=== PATIENT | female | born 2000 | race Two or more races ===

== ENCOUNTER 2022-03-06 17:58 | Inpatient (IN) | payer MEDICAID, OTHER ==
[~2022-03-06] VITALS: Ht 157.5 cm; Wt 54.4 kg
--- NOTE | 2022-03-06 18:15 | NUR ---
BIB [facility] ,SYNCOPAL EPISODE AT A MALL. PATIENT PLACED IN ROOM 6. NOW AWAKE, ALERT, ORIENTED X4. VITALS CHECKED. PATIENT CAME WITH IV CANNULA ON RIGHT HAND G20. WITH ONGOING IV BOLUS OF 0.9NS 500CC
--- NOTE | 2022-03-06 18:25 | NUR ---
SEEN BY BECCA ESPINOZA AT BEDSIDE.
--- NOTE | 2022-03-06 18:27 | NUR ---
EKG DONE AT BEDSIDE.
--- NOTE | 2022-03-06 18:29 | NUR ---
BLOOD DRAWN AND SENT TO LAB
[2022-03-06] MEDS ORDERED: IV NS 0.9% 1,000 ML BAG IV ONE (18:30)
--- NOTE | 2022-03-06 18:30 | NUR ---
0.9NS 1L BOLUS STARTED. END TIME 1900H
[2022-03-06 18:36] LABS: BASOPHILS % (AUTO) 0.8 % (0.0-2.0); EOSINOPHILS % (AUTO) 1.2 % (0.0-6.0); HEMATOCRIT 26 % (33-45); HEMOGLOBIN 7.9 g/dL (11.5-14.8); LYMPHOCYTES # (AUTO) 1.4 K/uL (0.8-4.8); LYMPHOCYTES % (AUTO) 25.7 % (20.0-44.0); MEAN CORPUSCULAR HGB CONC 30 g/dl (31.0-36.0); MEAN CORPUSCULAR VOLUME 67 fL (82-100); MONOCYTES # (AUTO) 0.3 K/uL (0.1-1.30); MONOCYTES % (AUTO) 5.3 % (2.0-12.0); NEUTROPHILS # (AUTO) 3.5 K/uL (1.8-8.9); PLATELET COUNT (AUTO) 339 K/uL (150-450); RED BLOOD CELL COUNT(AUTO) 3.92 MIL/uL (4.0-5.2); WHITE BLOOD COUNT (AUTO) 5.3 K/uL (4.3-11.0)
[2022-03-06 18:52] LABS: ALANINE AMINOTRANSFERASE 10 U/L (12-78); ALBUMIN 3.3 g/dL (3.4-5.0); ALKALINE PHOSPHATASE 49 U/L (46-116); ASPARTATE AMINOTRANSFERASE 23 U/L (15-37); BILIRUBIN,DIRECT 0.1 mg/dL (0.0-0.2); BILIRUBIN,TOTAL 0.8 mg/dL (0.2-1.0); CALCIUM, SERUM 8.3 mg/dL (8.5-10.1); CARBON DIOXIDE 21 mmol/L (21-32); CHLORIDE 108 mmol/L (98-107); CREATININE 0.6 mg/dL (0.6-1.3); GLUCOSE 95 mg/dL (74-106); POTASSIUM 4.3 mmol/L (3.5-5.1); SODIUM SERUM 140 mmol/L (136-145); TOTAL PROTEIN, SERUM 6.7 g/dL (6.4-8.2); UREA NITROGEN, BLOOD 11 mg/dL (7-18)
--- NOTE | 2022-03-06 19:03 | NUR ---
PT CANNOT PROVIDE URINE SAMPLES AT THE MOMENT. SIGNED DISCLAIMER THAT SHE IS NOT . LMP 02/24/22.
--- NOTE | 2022-03-06 19:28 | NUR ---
HUMIDIFIER OPERATOR AT BEDSIDE FOR CXR.
--- NOTE | 2022-03-06 20:07 | NUR ---
COVID SWAB DONE AND SENT TO LAB
--- NOTE | 2022-03-06 20:07 | NUR ---
URINE SPECIMEN SENT TO LAB
--- NOTE | 2022-03-06 20:10 | NUR ---
RECEIVED A CALL FROM PIT CRANE OPERATOR ELAYNE. CLINICALS RELAYED. PER ELAYNE, SHE WILL MAKE ARRANGEMENT TO TRANSFER PATIENT TO [facility]. SHE WILL INFORM US ABOUT UPDATES.
[2022-03-06 21:18] LABS: EOSINOPHILS % (MANUAL) 2 % (0-4); LYMPHOCYTES % (MANUAL) 24 % (16-48); MONOCYTES % (MANUAL) 5 % (0-11.0); NEUTROPHILS % (MANUAL) 69 (42-76)
--- NOTE | 2022-03-06 21:29 | NUR ---
ROOM 328-2
--- NOTE | 2022-03-06 22:03 | NUR ---
REPORT GIVEN TO ORAL ANGUIANOGE FOR PATIENT WHO WILL BE ADMITTED TO 328-2.
[2022-03-06 22:30] VITALS: BP_SYST 101; BP_SYST 110; BP_SYST 99; BP_DIAS 55; BP_DIAS 62
--- NOTE | 2022-03-06 22:30 | NUR ---
TRAVELING BUYERNETBACKUP ENGINEER NOTES RECEIVED NEW ADMIT FROM ER PER REA VIA ACLS PROTOCOL,THIS 21 YO FEMALE,WITH CHIEF COMPLAINTS OF PASSING OUT AT THE MALL.ALERT,ORIENTED X4,BREATHING NORMAL,O2 SAT 100% ON ROOM AIR,AMBULATORY,DENIES CHEST PAIN,NON ,SALINE LOCK RIGHT HAND INTACT AND PATENT,NO KNOWN MEDICAL HISTORY.ORIENTED TO ROOM SET UP,CALL LIGHT IN REACH,NEEDS ANTICIPATED.
--- NOTE | 2022-03-06 22:45 | NUR ---
PATIENT TRANSFERRED TO [facility] TELE VIA GURNEY ACCOMPANIED BY EMT AND RN.
[2022-03-07] VITALS: BP 95/50
[2022-03-07] MEDS ORDERED: Z GUARD REMEDY 4 OZ OINT TP PRN (02:00)
[2022-03-07] MEDS ORDERED: MAG HYDROX/AL HYDROX/SIMETH 30 ML UDC PO PRN (02:00)
[2022-03-07] MEDS ORDERED: ACETAMINOPHEN 325 MG TABLET PO PRN (02:00)
[2022-03-07] MEDS ORDERED: MAGNESIUM HYDROXIDE 30 ML UDC PO PRN (02:00)
[2022-03-07] MEDS ORDERED: ZOLPIDEM TARTRATE 5 MG TABLET PO PRN (02:00)
[2022-03-07] MEDS ORDERED: HYDROCODONE/APAP 5/325MG TABLET PO PRN (02:00)
[2022-03-07] MEDS ORDERED: ONDANSETRON HCL/PF 4 MG/2 ML VIAL IVP PRN (02:00)
[2022-03-07] MEDS: IV NS 0.9% 1,000 ML IV PRN ×2 (02:16→20:00)
[2022-03-07 05:00] VITALS: BP 109/54
[2022-03-07 06:17] LABS: BASOPHILS # (AUTO) 0.1 K/uL (0.0-0.2); BASOPHILS % (AUTO) 1.1 % (0.0-2.0); HEMATOCRIT 24 % (33-45); HEMOGLOBIN 7.1 g/dL (11.5-14.8); LYMPHOCYTES # (AUTO) 2.3 K/uL (0.8-4.8); LYMPHOCYTES % (AUTO) 33.9 % (20.0-44.0); MEAN CORPUSCULAR HGB CONC 30 g/dl (31.0-36.0); MEAN CORPUSCULAR VOLUME 67 fL (82-100); MONOCYTES # (AUTO) 0.4 K/uL (0.1-1.30); MONOCYTES % (AUTO) 6.4 % (2.0-12.0); NEUTROPHILS # (AUTO) 3.7 K/uL (1.8-8.9); NEUTROPHILS % (AUTO) 55.6 % (43.0-81.0); PLATELET COUNT (AUTO) 308 K/uL (150-450); RED BLOOD CELL COUNT(AUTO) 3.56 MIL/uL (4.0-5.2); WHITE BLOOD COUNT (AUTO) 6.7 K/uL (4.3-11.0)
--- NOTE | 2022-03-07 06:33 | NUR ---
FLUID JET CUTTER OPERATOR NOTES NO SIGNIFICANT CHANGE IN STATUS,SLEEP WELL,NOT IN ANY FORM DISTRESS.
[2022-03-07 06:55] LABS: ALBUMIN 2.9 g/dL (3.4-5.0); BILIRUBIN,TOTAL 0.6 mg/dL (0.2-1.0); CREATININE 0.6 mg/dL (0.6-1.3); MAGNESIUM 2.1 mg/dL (1.8-2.4); PHOSPHORUS 4.1 mg/dL (2.5-4.9); POTASSIUM 3.3 mmol/L (3.5-5.1); TOTAL PROTEIN, SERUM 5.9 g/dL (6.4-8.2)
--- NOTE | 2022-03-07 07:00 | NUR ---
PLASTICS FABRICATOR OR WELDER OPENING NOTE PATIENT A/O X 4, LAYING IN BED TOLERATING WELL ON ROOM AIR WITH NO S/S OF RESPIRATORY DISTRESS. BREATHING EVEN AND UNLABORED WITH NO COMPLAINTS OF PAIN OR DISCOMFORT AT THIS TIME. R HAND # 20 G SL CLEAN, INTACT, AND FLUSHING WELL. TELE MONITOR READING NSR 76. SAFETY MEASURES IN PLACE: BED IN LOWEST LOCKED POSITION, SIDE RAILS UP X 2, CALL LIGHT WITHIN REACH. WILL CONTINUE TO MONITOR.
[2022-03-07 07:16] LABS: CALCIUM, SERUM 7.9 mg/dL (8.5-10.1)
[2022-03-07] MEDS ORDERED: PANTOPRAZOLE 40 MG TABLET.DR PO SCH (07:30)
[2022-03-07 07:58] VITALS: BP 106/65
[2022-03-07 09:02] LABS: THYROID STIMULATING HORMONE 1.184 uIU/mL (0.358-3.74)
[2022-03-07] MEDS ORDERED: POTASSIUM CHLORIDE 20 MEQ TAB.PRT.SR PO SCH (10:00)
[2022-03-07 12:14] VITALS: BP 97/64
[2022-03-07] MEDS ORDERED: SOD FERRIC GLUC 125 MG in IV NS 0.9% 100 ML IV SCH (14:00)
[2022-03-07 16:08] VITALS: BP 104/53
--- NOTE | 2022-03-07 19:00 | NUR ---
SENIOR ELECTRICAL ENGINEER CLOSING NOTE PATIENT A/O X 4, LAYING IN BED TOLERATING WELL ON ROOM AIR WITH NO S/S OF RESPIRATORY DISTRESS. BREATHING EVEN AND UNLABORED WITH NO COMPLAINTS OF PAIN OR DISCOMFORT AT THIS TIME. R HAND # 20 G SL CLEAN, INTACT, AND FLUSHING WELL WITH NS @ 100 ML/HR. TELE MONITOR READING NSR 80. SAFETY MEASURES IN PLACE: BED IN LOWEST LOCKED POSITION, SIDE RAILS UP X 2, CALL LIGHT WITHIN REACH. WILL ENDORSE TO BATTERY BUILDER FOR BRET.
--- NOTE | 2022-03-07 21:25 | NUR ---
RN NOTE PT STATING SHE HAS TO GO HOME TONIGHT BECAUSE SHE HAS SCHOOL IN [place] AND A PRESENTATION SHE CAN'T MISS. PROVIDED EXPLANATION OF RISKS, AND HER ABNORMAL LABS. PT VERBALIZED UNDERSTANDING AND STATES SHE WILL SIGN AMA. PAGED ON-CALL .
--- NOTE | 2022-03-07 21:31 | NUR ---
RN NOTE PT STATING SHE HAS TO GO HOME TONIGHT AND WILL SIGN AMA. EXPLAINED RISKS/CONSEQUENCES, EXPLAINED ABNORMAL LABS. PT VERBALIZED UNDERSTANDING. ON-CALL INFORMED.
--- NOTE | 2022-03-07 21:45 | NUR ---
RN NOTE IV SITE DC'D. ALL BELONGINGS TAKEN. PT STABLE. PT LEFT UNIT WITH HER MOM.
[2022-03-08 16:55] LABS: OCCULT BLOOD STOOL NEGATIVE (NEGATIVE)
== END 2022-03-07 21:45 | disposition left against medical advice (07) | DRG 532 ==
LOC: ER 18:03 → TELE 21:38
PROVIDERS: ADMIT Hospitalist; ATTEND Nurse Practitioner Family
DX: N92.0 Excessive and frequent menstruation with regular cycle (principal); E44.1 Mild protein-calorie malnutrition; G90.8 Other disorders of autonomic nervous system; E88.09 Other disorders of plasma-protein metabolism, not elsewhere classified; D64.9 Anemia, unspecified; F14.10 Cocaine abuse, uncomplicated; D50.9 Iron deficiency anemia, unspecified; E87.6 Hypokalemia; Z20.822 Contact with and (suspected) exposure to COVID-19
CPT/HCPCS: 36415; 71045-TC; 80048-TC; 80053-TC; 80076-TC; 82272-TC; 83540-TC; 83735-TC; 84100-TC; 84443-TC; 84484-TC; 84703-TC; 85025-TC; 85027-TC; 87081-TC; C9803; G0378; J2916; J7030